=== PATIENT | male | born 1940 | race Caucasian/White ===

== ENCOUNTER 2021-04-28 07:34 | Day surgery (SDC) | payer OTHER ==
[~2021-04-28 07:34] MED LIST: CYCLOPENTOLATE 1% OPHTH DROPS 2 ML ONE; KETOROLAC 0.45% OPHTH DROPS ONE; MIDAZOLAM 2 MG/2 ML VIAL ONE; PHENYLEPHRINE 2.5% OPHTH 2 ML DROPS ONE; PROPARACAINE 0.5% OPHTH DROPS 15 ML ONE; fentaNYL 100 MCG/2 ML VIAL ONE
[2021-04-28] MEDS ORDERED: LACTATED RINGERS 1,000 ML IV ONE ×2 (07:53→08:39)
--- NOTE | 2021-04-28 08:15 | ANESTHESIA ---
Pre-Anesthesia VS, & Labs - Diagnosis R cataract - Procedure R PhacoIOL Vital Signs: Temp Pulse Resp BP Pulse Ox 36.2 C L 68 16 175/66 H 99 04/28/21 07:54 04/28/21 07:54 04/28/21 07:54 04/28/21 07:54 04/28/21 07:54 Height: 6 ft 3 in Weight (kg): 92.1 kg Body Mass Index: 25.3 BMI Classification: Overweight - NPO >8 hours Home Medications and Allergies Allergies/Adverse Reactions: Allergies Allergy/AdvReac Type Severity Reaction Status Date / Time aspirin AdvReac Unknown Verified 04/28/21 07:46 Anes History & Medical History - Anesthetic History Anesthesia Complications: reports: No previous complications Family history of Anesthesia Complications: Denies Family history of Malignant Hyperthermia: Denies - Medical History Cardiovascular: reports: None Pulmonary: reports: Asthma, Emphysema, Other Smoking Status: Never smoker - Surgical History General: reports: Cholecystectomy Exam General: Alert, Oriented x3, Cooperative Dental: WNL Mouth Openin Fingerbreadth Neck Mobility: Normal Mallampati classification: II Thyromental Distance: 4-6 cm Respiratory: Lungs clear Cardiovascular: Regular rate Plan Anesthesia Type: MAC, Total IV Consent for Procedure(s) Verified and Reviewed: Yes Code Status: Attempt Resuscitation ASA classification: 3-Severe systemic disease Is this case an emergency?: No
[2021-04-28] MEDS ORDERED: EPINEPHrine 1 MG/ML AMP IR ONE (08:26)
[2021-04-28] MEDS ORDERED: TIMOLOL 0.5% OPHTH DROPS OPTH ONE (08:26)
[2021-04-28] MEDS ORDERED: BRIMONIDINE 0.2% OPHTH DROPS 5 ML OPTH ONE (08:26)
[2021-04-28] MEDS ORDERED: PROPARACAINE 0.5% OPHTH DROPS 15 ML EACHEYE ONE (08:27)
[2021-04-28] MEDS ORDERED: VANCOMYCIN OPHTHALMI 8MG/0.8ML 8 MG/0.8 ML SYRINGE IO ONE (08:27)
[2021-04-28] MEDS ORDERED: BSS/LIDOCAINE/EPINEPHRINE 1 ML SYRINGE IO ONE (08:27)
[2021-04-28] MEDS ORDERED: TRIAMCIN/MOXIFLOX OPHTHALMIC 0.6 ML VIAL IO ONE (08:27)
--- NOTE | 2021-04-28 08:50 | OPERATIVE REPORT ---
Operative Report - Other Other Information/Narrative: Date of Surgery: 04/28/21 Preop Dx: Visually significant cataract right eye. This was the first cataract surgery. Postop Dx: Same Procedure: Phacoemulsification with posterior chamber intraocular lens implant right eye Surgeon: Dr. Blade Swain Anesthesia: Monitored anesthesia care Complications: None Operative Indications: This is a 80-year-old M with progressive vision loss in the right eye due to 3-4+ nuclear sclerotic cataract. Best corrected visual acuity was 20/40 with glare to 20/50 vision in the right eye. Indications for surgery were: - Overall decrease in vision - Difficulty seeing words on a computer screen - Difficulty reading - Difficulty seeing words, closed captions, or game scores on TV - Difficulty driving in low light or at night - Difficulty driving at night because of headlights from other vehicles - Difficulty with glare or bright lights in any situation The patient was consented at length concerning the risks and benefits of cataract surgery after which the patient expressed a desire to proceed with surgery. Operative Procedure: The patient was taken into OR#3 and placed under monitored anesthesia care. A surgical time-out was conducted confirming correct patient, correct procedure, and correct surgical site. The patient was given topical anesthesia and then prepped and draped in the usual sterile fashion. The eye was entered at the 6 and 3 oclock positions. Intracameral Shugarcaine was injected into the anterior chamber followed by a dispersive viscoelastic. A continuous-tear curvilinear capsulorhexis was performed. The nucleus was hydrodissected and phacoemulsified. The cortex was evacuated using automated infusion and aspiration. A cohesive viscoelastic was injected into the capsular bag and a 21.0 diopter intraocular lens was inserted into the bag. Infusion and aspiration were used to evacuate the viscoelastic materials from the eye. The wounds were hydrated and the eye inflated to physiologic pressure using balanced salt solution. Approximately 0.25ml of a mixture of triamcinolone and moxifloxacin was injected trans-sclerally into the vitreous in the inferotemporal quadrant using a 30 gauge cannula. An additional 0.55ml of a mixture of triamcinolone, moxifloxacin, and vancomycin was injected subconjunctivally in the superior quadrant for infection and inflammation prophylaxis. Wound integrity was checked with Weck-Elke sponges. The patient was taken from the operating room in good condition and given post-op instructions.
[2021-04-28 08:59] VITALS: BP 163/68
--- NOTE | 2021-04-28 13:38 | ANESTHESIA POST OP EVALUATION ---
Anesthesia Post Eval - Post Anesthesia Eval Vitals: Last Vital Signs Temp 36.3 C L 04/28/21 08:58 Pulse 70 04/28/21 08:58 Resp 16 04/28/21 08:58 BP 163/68 H 04/28/21 08:58 Pulse Ox 97 04/28/21 08:58 CV Function Including HR & BP: Stable Pain Control: Satisfactory Nausea & Vomiting: Negative Mental Status: Baseline Respiratory Status: Airway Patent Hydration Status: Satisfactory Anesthesia Complications: None
== END 2021-04-28 07:35 | disposition home or self-care (01) ==
LOC: SDS 07:34
PROVIDERS: ATTEND Ophthalmology
DX: H25.11 Age-related nuclear cataract, right eye (principal); J43.9 Emphysema, unspecified; Z87.891 Personal history of nicotine dependence; J84.10 Pulmonary fibrosis, unspecified
CPT/HCPCS: 66984; A9270; J3490; J7120

== ENCOUNTER 2021-06-30 07:42 | Day surgery (SDC) | payer OTHER ==
[~2021-06-30 07:42] MED LIST changes: -MIDAZOLAM 2 MG/2 ML VIAL ONE; -fentaNYL 100 MCG/2 ML VIAL ONE
[2021-06-30] MEDS ORDERED: LACTATED RINGERS 1,000 ML IV ONE (08:25)
--- NOTE | 2021-06-30 09:10 | ANESTHESIA ---
Pre-Anesthesia VS, & Labs - Diagnosis L cataract - Procedure L PhacoIOL Vital Signs: Temp Pulse Resp BP Pulse Ox 36.1 C L 65 62 H 164/69 H 99 06/30/21 07:55 06/30/21 07:55 06/30/21 07:55 06/30/21 07:55 06/30/21 07:55 Height: 6 ft 3 in Weight (kg): 98.9 kg Body Mass Index: 27.2 BMI Classification: Overweight - NPO >8 hours Home Medications and Allergies Home Medications: Ambulatory Orders Albuterol Sulf [Ventolin Hfa Inhaler] 1 - 2 puffs INH Q4HR PRN 06/29/21 Fluticasone/Salmeterol [Advair Hfa 115-21 Mcg Inhaler] 8 gm IH DAILY 06/29/21 Indomethacin [Indocin] 25 mg PO TID 06/29/21 Montelukast Sodium 10 mg PO DAILY 06/29/21 Tiotropium [employer] [Spiriva Respimat] 4 gm IH BID 06/29/21 methocarbamoL [Methocarbamol] 750 mg PO HS 06/29/21 Gabapentin [Neurontin] 1 tab PO HS 04/28/21 Albuterol Sulf [Ventolin Hfa Inhaler] 1 - 2 puffs INH Q4HR PRN 06/29/21 Fluticasone/Salmeterol [Advair Hfa 115-21 Mcg Inhaler] 8 gm IH DAILY 06/29/21 Indomethacin [Indocin] 25 mg PO TID 06/29/21 Montelukast Sodium 10 mg PO DAILY 06/29/21 Tiotropium [employer] [Spiriva Respimat] 4 gm IH BID 06/29/21 methocarbamoL [Methocarbamol] 750 mg PO HS 06/29/21 Allergies/Adverse Reactions: Allergies Allergy/AdvReac Type Severity Reaction Status Date / Time aspirin AdvReac Unknown Verified 04/28/21 07:46 Anes History & Medical History - Anesthetic History Anesthesia Complications: reports: No previous complications Family history of Anesthesia Complications: Denies Family history of Malignant Hyperthermia: Denies - Medical History Cardiovascular: reports: None Pulmonary: reports: Asthma, Emphysema, Other Smoking Status: Never smoker - Surgical History General: reports: Cholecystectomy Eyes Ears Nose Throat (EENT): reports: Cataracts Exam General: Alert, Oriented x3, Cooperative Dental: WNL Neck Mobility: Normal Mallampati classification: II Thyromental Distance: 4-6 cm Respiratory: Lungs clear Cardiovascular: Regular rate Plan Anesthesia Type: MAC Consent for Procedure(s) Verified and Reviewed: Yes Code Status: Attempt Resuscitation ASA classification: 3-Severe systemic disease Is this case an emergency?: No
[2021-06-30] MEDS ORDERED: MIDAZOLAM 2 MG/2 ML VIAL ONE (09:40)
[2021-06-30] MEDS ORDERED: TIMOLOL 0.5% OPHTH DROPS OPTH ONE (09:43)
[2021-06-30] MEDS ORDERED: BRIMONIDINE 0.2% OPHTH DROPS 5 ML OPTH ONE (09:43)
[2021-06-30] MEDS ORDERED: BSS/LIDOCAINE/EPINEPHRINE 1 ML SYRINGE IO ONE (09:43)
[2021-06-30] MEDS ORDERED: EPINEPHrine 1 MG/ML AMP IR ONE (09:43)
[2021-06-30] MEDS ORDERED: TRIAMCIN/MOXIFLOX OPHTHALMIC 0.6 ML VIAL IO ONE ×2 (09:44→11:22)
[2021-06-30] MEDS ORDERED: VANCOMYCIN OPHTHALMI 8MG/0.8ML 8 MG/0.8 ML SYRINGE IO ONE (09:44)
[2021-06-30] MEDS ORDERED: PROPARACAINE 0.5% OPHTH DROPS 15 ML EACHEYE ONE (09:44)
[2021-06-30] MEDS ORDERED: fentaNYL 100 MCG/2 ML VIAL ONE (10:00)
[2021-06-30] MEDS ORDERED: LACTATED RINGERS 800 ML IV ONE (10:03)
--- NOTE | 2021-06-30 10:12 | OPERATIVE REPORT ---
Operative Report - Other Other Information/Narrative: Date of Surgery: Preop Dx: Complex, visually significant cataract left eye. Complex due to small pupil requiring mechanical dilation using a Malyugin ring. Cataract surgery was performed in the right eye on [id number]. Postop Dx: Same Procedure: Phacoemulsification with posterior chamber intraocular lens implant left eye Surgeon: Dr. Blade Swain Anesthesia: Monitored anesthesia care Complications: None Operative Indications: This is a 80-year-old M with progressive vision loss in the left eye due to 2-3+ nuclear sclerotic cataract. Best corrected visual acuity was 20/20 with glare to 20/60 vision in the left eye. Indications for surgery were: - Difficulty seeing words on a computer screen - Difficulty reading - Difficulty seeing words, closed captions, or game scores on TV - Difficulty driving at night because of headlights from other vehicles - Difficulty with glare or bright lights in any situation The patient was consented at length concerning the risks and benefits of cataract surgery after which the patient expressed a desire to proceed with surgery. Operative Procedure: The patient was taken into OR#3 and placed under monitored anesthesia care. A surgical time-out was conducted confirming correct patient, correct procedure, and correct surgical site. The patient was given topical anesthesia and then prepped and draped in the usual sterile fashion. The eye was entered at the 6 and 3 oclock positions. Intracameral Shugarcaine was injected into the anterior chamber followed by a dispersive viscoelastic. A Malyugin ring was injected into the anterior chamber and engaged with the pupillary margin at four points to expand the pupil. A continuous-tear curvilinear capsulorhexis was performed. The nucleus was hydrodissected and phacoemulsified. The cortex was evacuated using automated infusion and aspiration. A cohesive viscoelastic was injected into the capsular bag and a 23.0 diopter intraocular lens was inserted into the bag. The Malyugin ring was disengaged from the pupillary margin and removed from the anterior chamber. Infusion and aspiration were used to evacuate the viscoelastic materials from the eye. The wounds were hydrated and the eye inflated to physiologic pressure using balanced salt solution. Approximately 0.25ml of a mixture of triamcinolone and moxifloxacin was injected trans-sclerally into the vitreous in the inferotemporal quadrant using a 30 gauge cannula. An additional 0.55ml of a mixture of triamcinolone, moxifloxacin, and vancomycin was injected subconjunctivally in the superior quadrant for infection and inflammation prophylaxis. Wound integrity was checked with Weck-Elke sponges. The patient was taken from the operating room in good condition and given post-op instructions.
[2021-06-30 10:18] VITALS: BP 148/62
--- NOTE | 2021-06-30 11:11 | ANESTHESIA POST OP EVALUATION ---
Anesthesia Post Eval - Post Anesthesia Eval Vitals: Last Vital Signs Temp 36.4 C L 06/30/21 10:17 Pulse 69 06/30/21 10:17 Resp 14 06/30/21 10:17 BP 148/62 H 06/30/21 10:17 Pulse Ox 96 06/30/21 10:17 CV Function Including HR & BP: Stable Pain Control: Satisfactory Nausea & Vomiting: Negative Mental Status: Baseline Respiratory Status: Airway Patent Hydration Status: Satisfactory Anesthesia Complications: None
[2021-06-30] MEDS ORDERED: EPINEPHrine 1 MG/ML AMP ONE (11:23)
[2021-06-30] MEDS ORDERED: BSS/LIDOCAINE/EPINEPHRINE 1 ML VIAL ONE (11:23)
[2021-06-30] MEDS ORDERED: TIMOLOL 0.5% OPHTH DROPS ONE (11:23)
[2021-06-30] MEDS ORDERED: BRIMONIDINE 0.2% OPHTH DROPS 5 ML ONE (11:23)
== END 2021-06-30 07:43 | disposition home or self-care (01) ==
LOC: SDS 07:42
PROVIDERS: ATTEND Ophthalmology
DX: H25.12 Age-related nuclear cataract, left eye (principal); Z98.41 Cataract extraction status, right eye; J43.9 Emphysema, unspecified; J45.909 Unspecified asthma, uncomplicated
CPT/HCPCS: 66984; A9270; J3490; J7120